=== PATIENT | male | born 1980 | race Caucasian/White ===

== ENCOUNTER → 2020-07-02 09:22 | Outpatient (CLI) | payer OTHER, SELFPAY ==
[2020-07-02 10:16] LABS: Cholesterol 266 mg/dL (140-199); HDL Cholesterol 44 mg/dL (40-60); LDL Cholesterol Calculated 170 mg/dL (<100); Triglycerides 259 mg/dL (35-150)
== END ==
PROVIDERS: PCP Family Medicine; Referring Provider Family Medicine; Visit Provider Family Medicine
DX: E78.01 Familial hypercholesterolemia (principal)
CPT/HCPCS: 36415; 80061

== ENCOUNTER → 2020-09-04 08:05 | Outpatient (CLI) | payer OTHER, SELFPAY ==
[2020-09-04] MEDS: COVID-19 VACC #1, MRNA(MOD) 100 MCG/0.5 ML VIAL IM (08:12)
== END ==
PROVIDERS: Visit Provider Internal Medicine
DX: Z23 Encounter for immunization (principal)
CPT/HCPCS: 0011A; 91301

== ENCOUNTER → 2020-10-02 08:06 | Outpatient (CLI) | payer OTHER, SELFPAY ==
[2020-10-02] MEDS: COVID-19 VACC #2, MRNA(MOD) 100 MCG/0.5 ML VIAL IM (08:14)
== END ==
PROVIDERS: Visit Provider Internal Medicine
DX: Z23 Encounter for immunization (principal)
CPT/HCPCS: 0012A; 91301

== ENCOUNTER 2021-10-15 12:58 | Emergency (ER) | payer OTHER, SELFPAY ==
[2021-10-15 13:58] VITALS: BP 168/101; PULSE 67; RESP 17; TEMP 36.4; O2SAT 98; BMI 26.5
[2021-10-15 14:54] LABS: Add Manual Diff / Slide Review NO; Basophils Absolute Auto 100 /uL (0-100); Basophils Percent Auto 0.4 % (0-2); Eosinophils Absolute Auto 0 /uL (0-450); Eosinophils Percent Auto 0.3 % (2-4); Hematocrit 42.8 % (41-53); Hemoglobin 15.3 g/dL (13.5-17.5); Lymphocytes Absolute Auto 1400 /uL (1100-4500); Lymphocytes Percent Auto 11.6 % (25-40); Mean Corpuscular HGB Conc 35.8 % (30-36); Mean Corpuscular Hemoglobin 30.8 PG (26-34); Monocytes Absolute Auto 800 /uL (0-900); Monocytes Percent Auto 6.7 % (3-14); Neutrophils Absolute Auto 9500 /uL (1500-7000); Platelet Count 218 X10^3/uL (150-400); Red Blood Cell Count 4.98 X10^6/uL (4.5-5.9); White Blood Cell Count 11.8 X10^3/uL (4.5-11.0)
[2021-10-15] MEDS: DEXAMETHASONE 10 MG/ML VIAL IV (14:55)
[2021-10-15] MEDS: SODIUM CHLORIDE 0.9% 1,000 ML 1000 ML IV (14:55)
[2021-10-15] MEDS: KETOROLAC 30 MG/ML VIAL 15 MG IV (14:56)
[2021-10-15] MEDS: AMPICILLIN/SULBACTAM 3 GM 3 GM in SODIUM CHLORIDE 0.9% 100 ML IV (14:57)
[2021-10-15 15:09] LABS: Alanine Aminotransferase 31 IU/L (<50); Albumin 4.8 g/dL (3.5-5.0); Albumin Globulin Ratio 1.7 (1.0-2.8); Alkaline Phosphatase 65 U/L (38-126); Aspartate Aminotransferase 31 IU/L (17-59); BUN Creatinine Ratio 11.1 (6-22); Bilirubin Total 1.5 mg/dL (0.2-1.3); Blood Urea Nitrogen 12 mg/dL (9-20); Calcium 9.3 mg/dL (8.4-10.2); Carbon Dioxide 28 mmol/L (22-32); Chloride 106 mmol/L (98-107); Estimated Glomerular Filt Rate > 60 mL/min (>60); Globulin 2.9 g/dL (1.7-4.1); Glucose 111 mg/dL (70-100); HEMOLYSIS < 15 (0-50); Sodium 143 mmol/L (137-145); Total Protein 7.7 g/dL (6.3-8.2)
--- NOTE | 2021-10-15 15:11 | ED_ITS ---
HPI - Dental/Oral General Chief complaint: Dental/Oral Stated complaint: Ref for IV antibiotics, tooth infection Time Seen by Provider: 10/15/21 14:30 Source: patient Mode of arrival: Ambulatory History of Present Illness HPI Narrative: 40-year-old male nonsmoker known dental infection presents at the request of his dentist. He had been seen and evaluated a few days ago for some right lower dental pain and was put on Augmentin. He has had 2 doses of his medication and the dentist sent him here for IV antibiotics given worsening swelling. He has pain but denies any trouble controlling secretions, breathing or swallowing. He has had no fever or chills in the past few days. He denies nausea or vomiting. He states the pain is sufficient to keep him up at night but he is otherwise well and free of complaint Related Data Previous Rx's Medication Instructions Recorded amoxicillin 500 mg-potassium 1 tab PO BID 7 Days #14 tab 10/14/21 clavulanate 125 mg tablet (Augmentin) Allergies Allergy/AdvReac Type Severity Reaction Status Date / Time codeine AdvReac nausea Verified 10/14/21 17:02 No Known Allergies Allergy Uncoded 10/14/21 17:02 Review of Systems Review of Systems Narrative: GENERAL: see HPI HEENT: see HPI RESPIRATORY: Denies dyspnea, cough, wheezing, hemoptysis, sputum. CARDIOVASCULAR: Denies chest pain, palpitations, orthopnea, edema, GASTROINTESTINAL: Denies nausea, vomiting, abdominal pain, diarrhea, co nstipation, melena. : Denies dysuria, frequency, incontinence, hematuria, urinary retention. MUSCULOSKELETAL: denies weakness, joint pain, or bony pain SKIN: Denies rash, skin lesions, or other NEUROLOGIC: Denies weakness, headache, numbness, change in speech, confusion, seizures, incoordination. PSYCHIATRIC: No concerning psychosocial issues. 12 point review of systems is negative except for those stated above Patient History Family History Father Diabetes mellitus Hyperlipidemia Mother Diabetes mellitus Hyperlipidemia CAD (coronary artery disease) Social History household members: spouse and children lives independently: Yes caregiver/support person: No housing: house pets and animals: Yes education level: college occupational status: employed Smoking Status: Never smoker alcohol intake: current substance use type: does not use Smoking Status: Never smoker alcohol intake frequency: 0-2 drinks per day Substance Use Type: does not use Exam Narrative Exam Narrative: GENERAL: [40] year old patient appears stated age. Well-developed patient, in mild distress. HEAD: Atraumatic. Normocephalic. EYES: Pupils equal round and reactive. Extraocular motions intact. No scleral icterus. No injection or drainage. ENT: Right mandibular swelling, no overlying erythema, no fluctuance noted, intraoral exam without obvious drainable fluctuant mass Nose without bleeding, purulent drainage. Throat without erythema, tonsillar hypertrophy or exudate. Airway patent. NECK: Trachea midline. Non tender CARDIOVASCULAR: Regular rate and rhythm without murmurs, gallops, or rubs. RESPIRATORY: Clear to auscultation. Breath sounds equal bilaterally. No wheezes, rales, or rhonchi. GASTROINTESTINAL: Abdomen soft, non-tender, nondistended. EXTREMITIES: No edema or joint tenderness. BACK: Nontender without deformity or crepitance. No flank tenderness. NEURO: AOx3. SKIN: No rash or erythema of visible areas Initial Vital Signs Initial Vital Signs: Vital Signs Temperature 97.6 F 10/15/21 13:58 Pulse Rate 67 10/15/21 13:58 Respiratory Rate 17 10/15/21 13:58 Blood Pressure 168/101 H 10/15/21 13:58 Pulse Oximetry 98 10/15/21 13:58 Course Orders Ordered: Discontinued Medications Dexamethasone (Dexamethasone 10 Mg/Ml Vial) 10 mg IV NOW ONE Stop: 10/15/21 14:31 Last Admin: 10/15/21 14:55 Dose: 10 mg Documented by: MK Sodium Chloride (Normal Saline 0.9%) 1,000 mls @ 1,000 mls/hr IV BOLUS ONE Stop: 10/15/21 15:29 Last Infusion: 10/15/21 16:41 Dose: 0 mls/hr Documented by: Admin: 10/15/21 14:55 Dose: 1,000 mls/hr Documented by: MK Ampicillin Sodium/Sulbactam (Sodium 3 gm/ Sodium Chloride) 100 mls @ 100 mls/hr IV NOW ONE Stop: 10/15/21 14:31 Last Infusion: 10/15/21 16:03 Dose: 0 mls/hr Documented by: Admin: 10/15/21 14:57 Dose: 100 mls/hr Documented by: MK Ketorolac Tromethamine (Ketorolac 30 Mg/Ml Vial) 15 mg IV NOW ONE Stop: 10/15/21 14:31 Last Admin: 10/15/21 14:56 Dose: 15 mg Documented by: MK Vital Signs Vital signs: Vital Signs - 8 hr 10/15/21 13:58 Temperature 97.6 F Pulse Rate 67 Respiratory Rate 17 Blood Pressure 168/101 H Pulse Oximetry 98 MDM - Dental/Oral Lab Data Result diagrams: 10/15/21 14:43 10/15/21 14:43 Labs: Lab Results 10/15/21 10/15/21 Range/Units 14:43 14:43 WBC 11.8 H (4.5-11.0) X10^3/uL RBC 4.98 (4.5-5.9) X10^6/uL Hgb 15.3 (13.5-17.5) g/dL Hct 42.8 (41-53) % MCV 86.0 (80-100) fL MCH 30.8 (26-34) PG MCHC 35.8 (30-36) % RDW 13.0 (11.6-14.8) % Plt Count 218 (150-400) X10^3/uL Neut % (Auto) 81.0 H (50-75) % Lymph % (Auto) 11.6 L (25-40) % [place] % (Auto) 6.7 (3-14) % Eos % (Auto) 0.3 L (2-4) % Baso % (Auto) 0.4 (0-2) % Neut # (Auto) 9500 H (3948-3517) /uL Lymph # (Auto) 1400 (1526-6746) /uL [place] # (Auto) 800 (0-900) /uL Eos # (Auto) 0 (0-450) /uL Baso # (Auto) 100 (0-100) /uL Sodium 143 (137-145) mmol/L Potassium 4.0 (3.4-5.1) mmol/L Chloride 106 (98-107) mmol/L Carbon Dioxide 28 (22-32) mmol/L BUN 12 (9-20) mg/dL Creatinine 1.08 (0.66-1.25) mg/dL Estimated GFR > 60 (>60) mL/min BUN/Creatinine Ratio 11.1 (6-22) Glucose 111 H (70-100) mg/dL Calcium 9.3 (8.4-10.2) mg/dL Total Bilirubin 1.5 H (0.2-1.3) mg/dL AST 31 (17-59) IU/L ALT 31 (<50) IU/L Alkaline Phosphatase 65 (38-126) U/L Total Protein 7.7 (6.3-8.2) g/dL Albumin 4.8 (3.5-5.0) g/dL Globulin 2.9 (1.7-4.1) g/dL Albumin/Globulin Ratio 1.7 (1.0-2.8) MDM Narrative Medical decision making narrative: Patient presents with minor facial swelling and a known dental abscess for which he has taken 2 doses of antibiotic prescribed by his dentist. He was referred here by his dentist for more aggressive treatment. He has no systemic findings, no trouble swallowing and no difficulty breathing. He has significant improvement after above-stated therapies. There is no indication for advanced imaging at this time. Return precautions given and questions answered to his apparent satisfaction Discharge Plan Departure Patient Disposition: Home Clinical Impression: Dental abscess Instructions: Tooth Abscess, DI for Dental Pain Activity Restrictions/Additional Instructions: *You have been diagnosed with [dental abscess] *What to do: *Please continue to take your regular medications as directed. [ ] New medication prescriptions sent to your pharmacy: [ ] [ ] New medication written as a paper prescription [x ] No new medications given *Please follow up with your primary care provider in 2-3 days, call for an appointment. Let them know you were seen in the Emergency Department and that we ask that you be seen in follow up. We will electronically transmit a record of today's note if your PCP is in our system *If you do not have a primary care provider please contact the [facility] Resource line at [phone]. They will ask some questions about your medical history and help get you set up with a doctor in the community. *Return to Emergency Department if you should have any new, worsening or concerning symptoms, such as [fever greater than 101 F, shaking chills, worsening pain, persistent vomiting or other bothersome symptoms] Prescriptions: No Action amoxicillin-pot clavulanate [Augmentin] 500-125 mg tablet 1 tab PO BID 7 Days Qty: 14 0RF Referrals: Diana Aviles MD [Primary Care Provider] -
[2021-10-15 17:01] VITALS: BP 140/101; PULSE 85; RESP 18; TEMP 37.1; O2SAT 97
== END 2021-10-15 17:03 | disposition home or self-care (01) ==
PROVIDERS: Emergency Provider Emergency Medicine; PCP Family Medicine
DX: K04.7 Periapical abscess without sinus (principal)
CPT/HCPCS: 36415; 80053; 85025; 96365; 96375; 99284; J0295; J1100; J1885

== ENCOUNTER → 2023-12-09 08:39 | Outpatient (CLI) | payer OTHER, SELFPAY ==
[2023-12-09 09:33] LABS: Influenza A - CEPHEID Flu A NEGATIVE (NEGATIVE); Influenza B - CEPHEID Flu B NEGATIVE (NEGATIVE); Respiratory Syncytial Virus Negative (Negative)
[2023-12-09 10:09] LABS: COVID-19 CEPHEID 4-PLEX PCR Negative (Negative)
== END ==
PROVIDERS: PCP Family Medicine; Visit Provider Student in an Organized Health Care Education/Training Program
DX: R50.9 Fever, unspecified (principal)
CPT/HCPCS: 0241U

== ENCOUNTER → 2023-12-09 09:00 | Outpatient (CLI) | payer OTHER, SELFPAY ==
--- NOTE | 2023-12-09 09:02 | DI.RAD.S_ITS ---
PROCEDURE: XR CHEST 2V INDICATIONS: coughx7 days; chills/sweats TECHNIQUE: 2 views of the chest were acquired. COMPARISON: None. FINDINGS: Surgical changes and devices: None. Lungs and pleura: Right lower lobe consolidation. No pleural effusions. Mediastinum: Normal heart size Bones and chest wall: Unremarkable IMPRESSION: Pneumonia centered in the right lower lobe. Consider future imaging surveillance to assess for resolution and exclude underlying mass. Dictated by: Portillo Frazier M.D. on 12/09/2023 at 9:43 Approved by: Portillo Frazier M.D. on 12/09/2023 at 9:44
== END ==
PROVIDERS: PCP Family Medicine; Referring Provider Student in an Organized Health Care Education/Training Program; Visit Provider Student in an Organized Health Care Education/Training Program
DX: J18.9 Pneumonia, unspecified organism (principal); R05.9 Cough, unspecified; R68.83 Chills (without fever)
CPT/HCPCS: 0241U; 71046

== ENCOUNTER → 2023-12-19 10:02 | Outpatient (CLI) | payer OTHER, SELFPAY ==
--- NOTE | 2023-12-19 10:03 | DI.RAD.S_ITS ---
PROCEDURE: XR CHEST 2V INDICATIONS: f/u pneumonia TECHNIQUE: 2 views of the chest were acquired. COMPARISON: [facility], CR, XR CHEST 2V, 12/09/2023, 9:01. FINDINGS: Surgical changes and devices: None. Lungs and pleura: Right lower lobe opacity is nearly resolved. No pleural effusions or pneumothorax. Mediastinum: Mediastinal contours are normal. Heart size is normal. Bones and chest wall: No suspicious bony abnormalities. Soft tissues appear unremarkable. IMPRESSION: Right lower lobe opacity is nearly resolved. Dictated by: Carl العراقي M.D. on 12/19/2023 at 11:00 Approved by: Carl العراقي M.D. on 12/19/2023 at 11:00
[2023-12-19 10:44] LABS: Cholesterol 203 mg/dL (140-199); Glucose 110 mg/dL (70-100); HDL Cholesterol 35 mg/dL (40-60); LDL Cholesterol Calculated 110 mg/dL (<100); Triglycerides 292 mg/dL (35-150)
[2023-12-19 12:11] LABS: Add Manual Diff / Slide Review NO; Basophils Absolute Auto 100 /uL (0-100); Basophils Percent Auto 0.5 % (0-2); Eosinophils Absolute Auto 700 /uL (0-450); Eosinophils Percent Auto 6.1 % (2-4); Hematocrit 46.5 % (41-53); Hemoglobin 16.5 g/dL (13.5-17.5); Lymphocytes Absolute Auto 2100 /uL (1100-4500); Lymphocytes Percent Auto 19.5 % (25-40); Mean Corpuscular HGB Conc 35.4 % (30-36); Mean Corpuscular Hemoglobin 30.9 PG (26-34); Mean Corpuscular Volume 87.4 fL (80-100); Monocytes Absolute Auto 600 /uL (0-900); Monocytes Percent Auto 5.9 % (3-14); Neutrophils Absolute Auto 7200 /uL (1500-7000); Platelet Count 438 X10^3/uL (150-400); Red Blood Cell Count 5.32 X10^6/uL (4.5-5.9); White Blood Cell Count 10.7 X10^3/uL (4.5-11.0)
[2023-12-19 16:27] LABS: Hemoglobin A1C% w Est Avg Glu 5.1 % (4.0-6.0)
== END ==
PROVIDERS: PCP Family Medicine; Referring Provider Family Medicine; Visit Provider Family Medicine
DX: J18.9 Pneumonia, unspecified organism (principal); Z13.9 Encounter for screening, unspecified; Z13.1 Encounter for screening for diabetes mellitus
CPT/HCPCS: 36415; 71046; 80061; 82947; 83036; 85025

== ENCOUNTER 2024-05-19 17:06 | Emergency (ER) | payer OTHER, SELFPAY ==
[2024-05-19] VITALS (9 sets, daily range): BP systolic 153–156; BP diastolic 94–107; PULSE 98–137; RESP 15–22; TEMP 37.2–38.8; O2SAT 94–97; BMI 26.8
--- NOTE | 2024-05-19 17:36 | ED_ITS ---
HPI - SOB/Dyspnea <Phylicia Cadena PA-C - Last Filed: 05/19/24 19:37> General Chief Complaint: Upper Respiratory Symptoms Stated Complaint: WIC; Fever, SoB, Pneumonia Time Seen by Provider: 05/19/24 17:36 Source: patient Mode of arrival: Ambulatory Limitations: no limitations History of Present Illness HPI Narrative: Mr. Hart is a healthy 43-year-old male with no reported past medical history or smoking who presents to the emergency department for cough, congestion, shortness of breath x 5 days. Patient states he was visiting friends in [place] on Monday when his symptoms began however he attributed them to allergies. On Monday became very fatigued and suspected he was sick. Patient has continued to have worsening productive cough, shortness of breath, fevers, chills, congestion since then. He is very active and a runner and reports that his symptoms feel similar to when he had pneumonia last summer. Denies chest pain, abdominal pain, vomiting, diarrhea. He took DayQuil this morning around 6:00 a.m. Denies drug use. Patient initially was seen at the walk-in clinic but was sent to the ER for his abnormal vital signs and concern for pneumonia. Related Data Previous Rx's Medication Instructions Recorded prednisone 20 mg tablet 20 mg PO DAILY #3 tabs 12/19/23 Allergies Allergy/AdvReac Type Severity Reaction Status Date / Time codeine AdvReac nausea Verified 12/19/23 09:43 Review of Systems <Phylicia Cadena PA-C - Last Filed: 05/19/24 19:37> Review of Systems ROS Unobtainable: All systems reviewed & are unremarkable except as noted in HPI and below Patient History <Phylicia Cadena PA-C - Last Filed: 05/19/24 19:37> Family History Father Diabetes mellitus Hyperlipidemia Mother Diabetes mellitus Hyperlipidemia CAD (coronary artery disease) Social History household members: spouse and children lives independently: Yes caregiver/support person: No housing: house pets and animals: Yes education level: college occupational status: employed Smoking Status: Never smoker alcohol intake: current substance use type: does not use Smoking Status: Never smoker alcohol intake frequency: 0-2 drinks per day Exam <Phylicia Cadena PA-C - Last Filed: 05/19/24 19:37> Narrative Exam Narrative: GENERAL: 43 year old patient appears stated age. Well-developed patient, in no acute distress. HEAD: Atraumatic. Normocephalic. EYES: Extraocular motions intact. No scleral icterus. No injection or drainage. ENT: Nose without bleeding, purulent drainage. Throat without erythema, tonsillar hypertrophy or exudate. Airway patent. NECK: Trachea midline. Cervical ROM intact. CARDIOVASCULAR: Tachycardic. Regular rhythm. RESPIRATORY: ?Nonlabored respirations. ?Speaking in clear, full sentences. Right lower lobe expiratory crackles. Good air movement throughout lungs. No wheezing. ? EXTREMITIES: No edema or joint tenderness. BACK: Nontender without deformity or crepitance. No flank tenderness. NEURO: AOx3. ?Clear speech. ?Moves all 4 extremities appropriately. SKIN: No rash or erythema of visible areas Initial Vital Signs Initial Vital Signs: Vital Signs Temperature 100.7 F H 05/19/24 17:16 Pulse Rate 137 H 05/19/24 17:16 Respiratory Rate 22 05/19/24 17:16 Blood Pressure 156/104 H 05/19/24 17:16 Pulse Oximetry 97 05/19/24 17:16 Oxygen Delivery Method Room Air 05/19/24 17:16 <Deepika Lewis MD - Last Filed: 05/19/24 20:00> Initial Vital Signs Initial Vital Signs: Vital Signs Temperature 100.7 F H 05/19/24 17:16 Pulse Rate 137 H 05/19/24 17:16 Respiratory Rate 22 05/19/24 17:16 Blood Pressure 156/104 H 05/19/24 17:16 Pulse Oximetry 97 05/19/24 17:16 Oxygen Delivery Method Room Air 05/19/24 17:16 Course <Phylicia Cadena PA-C - Last Filed: 05/19/24 19:37> Orders Ordered: ED Orders 05/19/24 17:45 XR chest 2V Stat EKG-12 Lead Stat 05/19/24 17:49 Complete Blood Count AUTO DIFF Stat Comprehensive Metabolic Panel Stat Lactate (Lactic Acid) Stat NT-proBNP (BNP-Adult 18+) Stat PTT Partial Thromboplastin Diomedes Stat Procalcitonin Stat Prothrombin Time INR Stat Troponin & CK Cardiac Panel Stat 05/19/24 18:10 Blood Culture Stat 05/19/24 18:20 Urinalysis and Microscopic Stat 05/19/24 18:56 CT angio chest PE protocol Stat Discontinued Medications Acetaminophen (Acetaminophen 325 Mg Tablet) 975 mg PO NOW ONE Stop: 05/19/24 17:46 Last Admin: 05/19/24 17:57 Dose: 975 mg Documented By: HALEY Sodium Chloride (Normal Saline 0.9%) 1,000 mls @ 1,000 mls/hr IV BOLUS ONE Stop: 05/19/24 18:44 Last Infusion: 05/19/24 18:56 Dose: Infused Documented By: Admin: 05/19/24 17:57 Dose: 1,000 mls/hr Documented By: HALEY Ibuprofen (Ibuprofen 400 Mg Tablet) 400 mg PO NOW ONE Stop: 05/19/24 17:46 Last Admin: 05/19/24 17:57 Dose: 400 mg Documented By: HALEY Vital Signs Vital signs: Vital Signs - 8 hr 05/19/24 17:16 05/19/24 18:02 05/19/24 18:28 Temperature 100.7 F H Pulse Rate 137 H 112 H Respiratory Rate 22 20 Blood Pressure 156/104 H Pulse Oximetry 97 97 97 Oxygen Delivery Method Room Air Room Air Room Air 05/19/24 18:52 05/19/24 19:02 05/19/24 19:02 Temperature 101.8 F H 101.8 F H 101.8 F H Pulse Rate 111 H Respiratory Rate 20 Blood Pressure 154/94 H Pulse Oximetry 96 Oxygen Delivery Method 05/19/24 19:15 05/19/24 19:16 05/19/24 19:16 Temperature 99.0 F Pulse Rate 99 H 102 H Respiratory Rate Blood Pressure 153/101 H Pulse Oximetry 97 97 Oxygen Delivery Method 05/19/24 19:30 05/19/24 19:30 05/19/24 19:57 Temperature 99.6 F Pulse Rate 98 H 100 H Respiratory Rate 15 20 Blood Pressure 156/107 H 156/107 H Pulse Oximetry 95 94 Oxygen Delivery Method Room Air <Deepika Lewis MD - Last Filed: 05/19/24 20:00> Orders Ordered: ED Orders 05/19/24 17:45 XR chest 2V Stat EKG-12 Lead Stat 05/19/24 17:49 Complete Blood Count AUTO DIFF Stat Comprehensive Metabolic Panel Stat Lactate (Lactic Acid) Stat NT-proBNP (BNP-Adult 18+) Stat PTT Partial Thromboplastin Diomedes Stat Procalcitonin Stat Prothrombin Time INR Stat Troponin & CK Cardiac Panel Stat 05/19/24 18:10 Blood Culture Stat 05/19/24 18:20 Urinalysis and Microscopic Stat 05/19/24 18:56 CT angio chest PE protocol Stat Discontinued Medications Acetaminophen (Acetaminophen 325 Mg Tablet) 975 mg PO NOW ONE Stop: 05/19/24 17:46 Last Admin: 05/19/24 17:57 Dose: 975 mg Documented By: HALEY Sodium Chloride (Normal Saline 0.9%) 1,000 mls @ 1,000 mls/hr IV BOLUS ONE Stop: 05/19/24 18:44 Last Infusion: 05/19/24 18:56 Dose: Infused Documented By: Admin: 05/19/24 17:57 Dose: 1,000 mls/hr Documented By: HALEY Ibuprofen (Ibuprofen 400 Mg Tablet) 400 mg PO NOW ONE Stop: 05/19/24 17:46 Last Admin: 05/19/24 17:57 Dose: 400 mg Documented By: HALEY Vital Signs Vital signs: Vital Signs - 8 hr 05/19/24 17:16 05/19/24 18:02 05/19/24 18:28 Temperature 100.7 F H Pulse Rate 137 H 112 H Respiratory Rate 22 20 Blood Pressure 156/104 H Pulse Oximetry 97 97 97 Oxygen Delivery Method Room Air Room Air Room Air 05/19/24 18:52 05/19/24 19:02 05/19/24 19:02 Temperature 101.8 F H 101.8 F H 101.8 F H Pulse Rate 111 H Respiratory Rate 20 Blood Pressure 154/94 H Pulse Oximetry 96 Oxygen Delivery Method 05/19/24 19:15 05/19/24 19:16 05/19/24 19:16 Temperature 99.0 F Pulse Rate 99 H 102 H Respiratory Rate Blood Pressure 153/101 H Pulse Oximetry 97 97 Oxygen Delivery Method 05/19/24 19:30 05/19/24 19:30 05/19/24 19:57 Temperature 99.6 F Pulse Rate 98 H 100 H Respiratory Rate 15 20 Blood Pressure 156/107 H 156/107 H Pulse Oximetry 95 94 Oxygen Delivery Method Room Air MDM - SOB/Dyspnea <Phylicia C Surinder, PA-C - Last Filed: 05/19/24 19:37> Lab Data 05/19/24 17:49 05/19/24 17:49 Labs: Lab Results 05/19/24 05/19/24 Range/Units 17:49 18:20 WBC 6.4 (4.5-11.0) X10^3/uL RBC 5.06 (4.5-5.9) X10^6/uL Hgb 15.7 (13.5-17.5) g/dL Hct 44.8 (41-53) % MCV 88.6 (80-100) fL MCH 31.0 (26-34) PG MCHC 35.1 (30-36) % RDW 13.1 (11.6-14.8) % Plt Count 205 (150-400) X10^3/uL Neut % (Auto) 74.8 (50-75) % Lymph % (Auto) 15.2 L (25-40) % [place] % (Auto) 9.1 (3-14) % Eos % (Auto) 0.7 L (2-4) % Baso % (Auto) 0.2 (0-2) % Neut # (Auto) 4800 (7158-5683) /uL Lymph # (Auto) 1000 L (5166-8124) /uL [place] # (Auto) 600 (0-900) /uL Eos # (Auto) 0 (0-450) /uL Baso # (Auto) 0 (0-100) /uL PT 12.8 H (9.4-12.5) SECONDS INR 1.1 (0.9-1.3) APTT 38 H (25.1-36.5) SECONDS Sodium 136 L (137-145) mmol/L Potassium 3.7 (3.4-5.1) mmol/L Chloride 106 (98-107) mmol/L Carbon Dioxide 24 (22-32) mmol/L BUN 14 (9-20) mg/dL Creatinine 1.13 (0.66-1.25) mg/dL Estimated GFR > 60 (>60) mL/min BUN/Creatinine Ratio 12.4 (6-22) Glucose 130 H (70-100) mg/dL Lactate 1.4 (0.7-2.1) mmol/L Calcium 9.8 (8.4-10.2) mg/dL Total Bilirubin 0.8 (0.2-1.3) mg/dL AST 51 (17-59) IU/L ALT 60 H (<50) IU/L Alkaline Phosphatase 72 (38-126) U/L Total Creatine Kinase 176 H (55-170) U/L Troponin I < 0.012 (0.01-0.034) ng/mL NT-Pro-B Natriuret Pep 21 (<125) pg/mL Total Protein 7.7 (6.3-8.2) g/dL Albumin 4.7 (3.5-5.0) g/dL Globulin 3.0 (1.7-4.1) g/dL Albumin/Globulin Ratio 1.6 (1.0-2.8) Procalcitonin 0.084 (<0.5) ng/mL Urine Color Yellow Urine Appearance Clear Urine pH 6.0 (4.5-8.0) Ur Specific [place] 1.010 (1.000-1.035) Urine Protein Negative (Negative) Urine Glucose (UA) Trace H (Negative) g/dL Urine Ketones Negative (NEGATIVE) Urine Occult Blood Negative (Negative) Urine Nitrate Negative (Negative) Urine Bilirubin Negative (NEGATIVE) Urine Urobilinogen 0.2 (0.2) E.U./dL Ur Leukocyte Esterase Negative (NEGATIVE) Urine RBC 0-1/hpf (0-5/HPF) Urine WBC 0-1/hpf (0-5/HPF) Ur Squamous Epith Cells 0-1 /hpf (0-5/HPF) Urine Bacteria Occasional (0-1) (None) Ur Culture Indicated? Cult not indicated Vol Urine Centrifuged 10ml (spun) MDM Narrative Medical decision making narrative: 43-year-old male with no reported past medical history or smoking who presents to the emergency department for cough, congestion, shortness of breath x 5 days. Differential diagnosis includes but is not limited to pneumonia, sepsis, PE, pleural effusion, viral URI, bronchitis, etc. On exam the patient is in no acute distress. He is oxygenating well on room air however he is tachycardic, febrile and hypertensive. He has coarse breath sounds in the right lower lobe. Daytime attending physician Dr. Painter aware of patient and we discussed the plan. We will proceed with chest x-ray, sepsis labs, treat with ibuprofen Tylenol and 1L IVF fluids, additional treatments pending remainder of work-up and clinic response to treatment. Viral swab was obtained at the walk-in clinic and patient has a positive for flu A. Labs reveal normal WBC count of 6.4, hemoglobin 15.7 hematocrit 44.8. Normal platelets 205. CMP reveals sodium 136, glucose 130, normal potassium 3.7, CO2 24. Creatinine 1.13, near baseline of 1.08. Creatinine kinase slightly elevated at 176. Troponin negative, less than 0.012 BNP negative at 21. Procalcitonin 0.084. UA shows trace glucose, no signs of infection. Chest x-ray is negative, no acute cardiopulmonary abnormality is seen. Due to patient's persistent tachycardia in the setting of a normal chest x-ray, we will proceed with CT angiogram of the chest to rule out PE as contributing to shortness of breath/tachycardia. Due to the end of my shift, case was discussed with nighttime attending physician Dr. Lewis. At this time the CTA chest is still pending. Disposition of patient will be determined by Dr. Lewis. Patient is aware and agreeable to transfer of care. He is in stable condition to be transferred from the fast track area to the main ED. <Deepika Lewis MD - Last Filed: 05/19/24 20:00> Lab Data Labs: Lab Results 05/19/24 05/19/24 Range/Units 17:49 18:20 WBC 6.4 (4.5-11.0) X10^3/uL RBC 5.06 (4.5-5.9) X10^6/uL Hgb 15.7 (13.5-17.5) g/dL Hct 44.8 (41-53) % MCV 88.6 (80-100) fL MCH 31.0 (26-34) PG MCHC 35.1 (30-36) % RDW 13.1 (11.6-14.8) % Plt Count 205 (150-400) X10^3/uL Neut % (Auto) 74.8 (50-75) % Lymph % (Auto) 15.2 L (25-40) % [place] % (Auto) 9.1 (3-14) % Eos % (Auto) 0.7 L (2-4) % Baso % (Auto) 0.2 (0-2) % Neut # (Auto) 4800 (9778-0815) /uL Lymph # (Auto) 1000 L (8999-1105) /uL [place] # (Auto) 600 (0-900) /uL Eos # (Auto) 0 (0-450) /uL Baso # (Auto) 0 (0-100) /uL PT 12.8 H (9.4-12.5) SECONDS INR 1.1 (0.9-1.3) APTT 38 H (25.1-36.5) SECONDS Sodium 136 L (137-145) mmol/L Potassium 3.7 (3.4-5.1) mmol/L Chloride 106 (98-107) mmol/L Carbon Dioxide 24 (22-32) mmol/L BUN 14 (9-20) mg/dL Creatinine 1.13 (0.66-1.25) mg/dL Estimated GFR > 60 (>60) mL/min BUN/Creatinine Ratio 12.4 (6-22) Glucose 130 H (70-100) mg/dL Lactate 1.4 (0.7-2.1) mmol/L Calcium 9.8 (8.4-10.2) mg/dL Total Bilirubin 0.8 (0.2-1.3) mg/dL AST 51 (17-59) IU/L ALT 60 H (<50) IU/L Alkaline Phosphatase 72 (38-126) U/L Total Creatine Kinase 176 H (55-170) U/L Troponin I < 0.012 (0.01-0.034) ng/mL NT-Pro-B Natriuret Pep 21 (<125) pg/mL Total Protein 7.7 (6.3-8.2) g/dL Albumin 4.7 (3.5-5.0) g/dL Globulin 3.0 (1.7-4.1) g/dL Albumin/Globulin Ratio 1.6 (1.0-2.8) Procalcitonin 0.084 (<0.5) ng/mL Urine Color Yellow Urine Appearance Clear Urine pH 6.0 (4.5-8.0) Ur Specific [place] 1.010 (1.000-1.035) Urine Protein Negative (Negative) Urine Glucose (UA) Trace H (Negative) g/dL Urine Ketones Negative (NEGATIVE) Urine Occult Blood Negative (Negative) Urine Nitrate Negative (Negative) Urine Bilirubin Negative (NEGATIVE) Urine Urobilinogen 0.2 (0.2) E.U./dL Ur Leukocyte Esterase Negative (NEGATIVE) Urine RBC 0-1/hpf (0-5/HPF) Urine WBC 0-1/hpf (0-5/HPF) Ur Squamous Epith Cells 0-1 /hpf (0-5/HPF) Urine Bacteria Occasional (0-1) (None) Ur Culture Indicated? Cult not indicated Vol Urine Centrifuged 10ml (spun) MDM Narrative Medical decision making narrative: 43-year-old male with no reported past medical history or smoking who presents to the emergency department for cough, congestion, shortness of breath x 5 days. Differential diagnosis includes but is not limited to pneumonia, sepsis, PE, pleural effusion, viral URI, bronchitis, etc. On exam the patient is in no acute distress. He is oxygenating well on room air however he is tachycardic, febrile and hypertensive. He has coarse breath sounds in the right lower lobe. Daytime attending physician Dr. Painter aware of patient and we discussed the plan. We will proceed with chest x-ray, sepsis labs, treat with ibuprofen Tylenol and 1L IVF fluids, additional treatments pending remainder of work-up and clinic response to treatment. Viral swab was obtained at the walk-in clinic and patient has a positive for flu A. Labs reveal normal WBC count of 6.4, hemoglobin 15.7 hematocrit 44.8. Normal platelets 205. CMP reveals sodium 136, glucose 130, normal potassium 3.7, CO2 24. Creatinine 1.13, near baseline of 1.08. Creatinine kinase slightly elevated at 176. Troponin negative, less than 0.012 BNP negative at 21. Procalcitonin 0.084. UA shows trace glucose, no signs of infection. Chest x-ray is negative, no acute cardiopulmonary abnormality is seen. Due to patient's persistent tachycardia in the setting of a normal chest x-ray, we will proceed with CT angiogram of the chest to rule out PE as contributing to shortness of breath/tachycardia. Due to the end of my shift, case was discussed with nighttime attending physician Dr. Lewis. At this time the CTA chest is still pending. Disposition of patient will be determined by Dr. Lewis. Patient is aware and agreeable to transfer of care. He is in stable condition to be transferred from the fast track area to the main ED. Dr. Lewis -care of patient is signed out to me by daytime physician senior assistant manager. Independent review of patient and chart performed by myself. Patient resting comfortably in bed, heart rate has downtrended, oxygen stable on room air, patient conversational on room air. CT angio shows no acute findings, no PE, no pneumonia. Patient was positive for influenza a, however due to the onset of his symptoms he is not a candidate for Tamiflu. Patient counseled to take Tylenol and ibuprofen as needed for fever or discomfort and to make sure that he hydrated by drinking plenty of fluids. Patient expressed understanding of plan and is in agreement at this time. Discharge Plan Departure Patient Disposition: Home Clinical Impression: Influenza Instructions: DI for Influenza -- Adult Activity Restrictions/Additional Instructions: YOUR LABORATORY WORK TODAY IS OVERALL REASSURING. YOU DO HAVE INFLUENZA, WHICH CAN EXPLAIN MANY OF YOUR SYMPTOMS. MAKE SURE THAT YOU STAY HYDRATED AND DRINK LOTS OF FLUIDS. TAKE TYLENOL AND IBUPROFEN NEEDED FOR FEVER OR DISCOMFORT. FOLLOW UP WITH YOUR PRIMARY CARE DOCTOR. Prescriptions: No Action prednisone 20 mg tablet 20 mg PO DAILY Qty: 3 0RF Referrals: Diana Aviles MD [Primary Care Provider] - Stand Alone Forms: Patient Portal/API/Survey
--- NOTE | 2024-05-19 17:45 | DI.RAD.S_ITS ---
PROCEDURE: XR CHEST 2V INDICATIONS: concern for pneumonia; sob cough fever TECHNIQUE: 2 views of the chest were acquired. COMPARISON: [facility], , XR CHEST 2V, 12/19/2023, 10:09. FINDINGS: Surgical changes and devices: None. Lungs and pleura: Lungs are clear. No pleural effusions or pneumothorax. Mediastinum: Mediastinal contours are normal. Heart size is normal. Bones and chest wall: No suspicious bony abnormalities. Soft tissues appear unremarkable. IMPRESSION: No acute cardiopulmonary abnormality is seen. Approved by: Layo Almendarez M.D. on 05/19/2024 at 17:51
--- NOTE | 2024-05-19 17:45 | EKG_ITS ---
[facility] [address], [place] [address] Test Date: 2024-05-19 Pat Name: Raimundo Hart Department: [facility] Room: Gender: Male Residential Case Manager: RAJIV : 1980 Requested By: Order Number: [id number] Reading MD: Jethro Allred MD Measurements Intervals [place] Rate: 100 P: 43 MN: 138 QRS: -22 QRSD: 86 T: -12 QT: 338 QTc: 436 Interpretive Statements Normal sinus rhythm Electronically Signed On 05-20-2024 7:47:34 PST by Jethro Allred MD
[2024-05-19 17:57] LABS: Add Manual Diff / Slide Review NO; Basophils Absolute Auto 0 /uL (0-100); Basophils Percent Auto 0.2 % (0-2); Eosinophils Absolute Auto 0 /uL (0-450); Eosinophils Percent Auto 0.7 % (2-4); Hematocrit 44.8 % (41-53); Hemoglobin 15.7 g/dL (13.5-17.5); Lymphocytes Absolute Auto 1000 /uL (1100-4500); Lymphocytes Percent Auto 15.2 % (25-40); Mean Corpuscular HGB Conc 35.1 % (30-36); Mean Corpuscular Volume 88.6 fL (80-100); Monocytes Absolute Auto 600 /uL (0-900); Monocytes Percent Auto 9.1 % (3-14); Neutrophils Absolute Auto 4800 /uL (1500-7000); Neutrophils Percent Auto 74.8 % (50-75); Platelet Count 205 X10^3/uL (150-400); Red Blood Cell Count 5.06 X10^6/uL (4.5-5.9); Red Cell Distribution Width 13.1 % (11.6-14.8); White Blood Cell Count 6.4 X10^3/uL (4.5-11.0)
[2024-05-19] MEDS: SODIUM CHLORIDE 0.9% 1,000 ML 1000 ML IV (17:57)
[2024-05-19] MEDS: ACETAMINOPHEN 325 MG TABLET 975 MG PO (17:57)
[2024-05-19] MEDS: IBUPROFEN 400 MG TABLET PO (17:57)
[2024-05-19 18:05] LABS: INR 1.1 (0.9-1.3); Prothrombin Time 12.8 SECONDS (9.4-12.5)
[2024-05-19 18:10] LABS: Alanine Aminotransferase 60 IU/L (<50); Albumin 4.7 g/dL (3.5-5.0); Albumin Globulin Ratio 1.6 (1.0-2.8); Alkaline Phosphatase 72 U/L (38-126); Aspartate Aminotransferase 51 IU/L (17-59); BUN Creatinine Ratio 12.4 (6-22); Bilirubin Total 0.8 mg/dL (0.2-1.3); Blood Urea Nitrogen 14 mg/dL (9-20); Calcium 9.8 mg/dL (8.4-10.2); Carbon Dioxide 24 mmol/L (22-32); Chloride 106 mmol/L (98-107); Creatine Kinase 176 U/L (55-170); Estimated Glomerular Filt Rate > 60 mL/min (>60); Glucose 130 mg/dL (70-100); HEMOLYSIS < 15 (0-50); Lactate (Lactic Acid) 1.4 mmol/L (0.7-2.1); Potassium 3.7 mmol/L (3.4-5.1); Sodium 136 mmol/L (137-145); Total Protein 7.7 g/dL (6.3-8.2)
[2024-05-19 18:14] LABS: PTT Partial Thromboplastin Tim 38 SECONDS (25.1-36.5)
[2024-05-19 18:22] LABS: NT-proBNP (BNP-Adult 18+) 21 pg/mL (<125); Troponin I < 0.012 ng/mL (0.01-0.034)
[2024-05-19 18:27] LABS: Procalcitonin 0.084 ng/mL (<0.5)
[2024-05-19 18:32] LABS: Appearance Urine UA CLEAR; Bilirubin Urine UA NEGATIVE (NEGATIVE); Color Urine UA YELLOW; Glucose Urine UA TRACE g/dL (Negative); Ketones Urine UA NEGATIVE (NEGATIVE); Leukocyte Esterase Urine UA NEGATIVE (NEGATIVE); Nitrite Urine UA NEGATIVE (Negative); Occult Blood Urine UA NEGATIVE (Negative); Protein Urine UA NEGATIVE (Negative); Urobilinogen Urine UA 0.2 E.U./dL (0.2)
[2024-05-19 18:38] LABS: Bacteria Urine Occasional (0-1); Culture Indicated Urine Cult Not Indicated; RBC Urine 0-1/HPF (0-5/HPF); Squamous Epithelial Cell Urine 0-1 /HPF (0-5/HPF); Urine Volume 10mL (spun); WBC Urine 0-1/HPF (0-5/HPF)
--- NOTE | 2024-05-19 18:56 | DI.CT.S_ITS ---
PROCEDURE: CT ANGIO CHEST PE PROTOCOL INDICATIONS: SOB; cough; flu A positive; normal xr concern for pe TECHNIQUE: After the administration of intravenous contrast, 2 mm thick sections acquired from the pulmonary apices to the posterior costophrenic angles. 3-dimensional maximum intensity projection (MIP) coronal and sagittal reformats were then acquired through the thorax. For radiation dose reduction, the following was used: automated exposure control, adjustment of mA and/or kV according to patient size. COMPARISON: None. FINDINGS: Image quality: Diagnostic. Pulmonary arteries: Pulmonary arteries are normal in size, and demonstrate no intraluminal filling defects to suggest central pulmonary embolism. Lower Neck: No enlarged lymph nodes. Thyroid: No thyroid nodules which require sonographic follow up, per consensus guidelines. Axillae: No enlarged lymph nodes. Chest Wall: Unremarkable. Bones: Unremarkable. Lungs and Pleura: No pneumothorax or pleural effusions. No consolidation or suspicious nodules. Heart: Heart size is normal. No pericardial effusion. Thoracic Vessels: No aortic aneurysm. Mediastinum and Irene: No enlarged lymph nodes. Esophagus: No wall thickening. Small hiatal hernia. Upper Abdomen: Visualized upper abdomen solid organs and bowel loops appear normal. IMPRESSION: 1. No pulmonary embolus. No thoracic aortic aneurysm or gross dissection. 2. No acute cardiopulmonary process. 3. Small hiatal hernia. Dictated by: Krihsna Jackson M.D. on 05/19/2024 at 19:24 Approved by: Krishna Jackson M.D. on 05/19/2024 at 19:28
== END 2024-05-19 19:58 | disposition home or self-care (01) ==
PROVIDERS: Physician Assistant; Emergency Provider Emergency Medicine; PCP Family Medicine
DX: J10.1 Influenza due to other identified influenza virus with other respiratory manifestations (principal); R05.9 Cough, unspecified; Z20.828 Contact with and (suspected) exposure to other viral communicable diseases
CPT/HCPCS: 0241U; 36415; 71046; 71275; 80053; 81001; 82550; 83605; 83880; 84145; 84484; 85025; 85610; 85730; 87040; 93005; 93010; 96360; 99284; Q9967

== ENCOUNTER → 2024-05-19 17:08 | Outpatient (CLI) | payer OTHER, SELFPAY ==
[2024-05-19 18:13] LABS: Influenza A - CEPHEID Flu A POSITIVE (NEGATIVE); Influenza B - CEPHEID Flu B NEGATIVE (NEGATIVE); Respiratory Syncytial Virus Negative (Negative)
[2024-05-19 18:15] LABS: COVID-19 CEPHEID 4-PLEX PCR Negative (Negative)
== END ==
PROVIDERS: PCP Family Medicine; Visit Provider Registered Nurse
DX: Z20.828 Contact with and (suspected) exposure to other viral communicable diseases (principal)
CPT/HCPCS: 0241U

== ENCOUNTER → 2024-09-13 12:19 | Outpatient (CLI) | payer OTHER, SELFPAY ==
[2024-09-13 13:14] LABS: Cholesterol 305 mg/dL (140-199); HDL Cholesterol 40 mg/dL (40-60); LDL Cholesterol Calculated 216 mg/dL (<100); Triglycerides 247 mg/dL (35-150)
[2024-09-13 13:18] LABS: Hemoglobin A1C% w Est Avg Glu 5.1 % (4.0-6.0)
== END ==
PROVIDERS: PCP Family Medicine; Referring Provider Family Medicine; Visit Provider Family Medicine
DX: R73.9 Hyperglycemia, unspecified (principal); Z13.1 Encounter for screening for diabetes mellitus
CPT/HCPCS: 36415; 80061; 83036

== ENCOUNTER → 2024-11-06 08:15 | Outpatient (CLI) | payer OTHER, SELFPAY ==
--- NOTE | 2024-11-06 08:15 | DI.NM.S_ITS ---
PROCEDURE: NM EXERCISE TREADMILL NON NUC COMPARISON: None. INDICATIONS: chest pain FINDINGS: Patient exercised per the standard John protocol. Total exercise time was 15 minutes and 0 seconds. Test was terminated secondary to fatigue. Maximal heart rate attained is 175 bpm which is 98% of maximal predicted heart rate. Maximum blood pressure was 184/98[place] [address]. [place] -23%. 15.5 METS. No ischemic changes noted. No arrhythmias present. Normal heart rate and blood pressure response to exercise. No chest pains voiced. IMPRESSION: 1. Negative exercise treadmill stress test for ischemia. 2. Above average exercise tolerance. Dictated by: Cyril Jackson M.D. on 11/06/2024 at 16:40 Approved by: Cyril Jackson M.D. on 11/06/2024 at 16:42
== END ==
PROVIDERS: PCP Family Medicine; Referring Provider Family Medicine; Visit Provider Family Medicine
DX: R07.9 Chest pain, unspecified (principal)
CPT/HCPCS: 93017